=== PATIENT | male | born 1960 | race Caucasian/White ===

== ENCOUNTER 2016-11-30 09:25 | Emergency (ER) | payer BC, OTHER ==
[2016-11-30 10:29] VITALS: BP 190/106
--- NOTE | 2016-11-30 12:43 | UC ---
Throat Pain/Nasal Aníbal HPI - HPI Summary HPI Summary: 56 male presents complaining of sore throat especially in the morning, cough and nasal congestion that started 5 days ago. Patient states he has not tried taking anything for the symptoms besides Nyquil with minimal relief. He is around sick contacts often. He wanted to make sure it wasn't strep or something that needed an antibiotic. States the cough is productive at points with a mucus -like sputum coming up. He does have coughing fits. Denies fever/chills, difficulty breathing, chest pain and nausea/vomiting. - History of Current Complaint Chief Complaint: UCRespiratory Stated Complaint: THROAT PAIN Time Seen by Provider: 11/30/16 11:42 Hx Obtained From: Patient Onset/Duration: Sudden Onset, Lasting Days Severity: Mild Pain Intensity: 7 Pain Scale Used: 0-10 Numeric Cough: Sputum Appears - mucus like Associated Signs & Symptoms: Positive: Dysphagia, Nasal Discharge. Negative: Wheezing, Hoarseness, Sinus Discomfort, Fever - Allergies/Home Medications Allergies/Adverse Reactions: Allergies Allergy/AdvReac Type Severity Reaction Status Date / Time No Known Allergies Allergy Verified 05/14/13 07:34 PMH/Surg Hx/FS Hx/Imm Hx Previously Healthy: Yes Cardiovascular History Of: Reports: Hypertension - WELL CONTROLLED ON MEDICATION Denies: Pacemaker/ICD - Surgical History Surgical History: Yes Surgery Procedure, Year, and Place: [id number] LASER- NO IMPLANTS- 1995. ORAL SURGERIES - Family History Known Family History: Positive: Unknown - Social History Alcohol Use: None Substance Use Type: None Smoking Status (MU): Former Smoker Type: Cigars Review of Systems Constitutional: Negative Skin: Negative Eyes: Negative ENT: Sore Throat, Nasal Discharge Respiratory: Cough Cardiovascular: Negative Gastrointestinal: Negative Genitourinary: Negative Motor: Negative Neurovascular: Negative Musculoskeletal: Negative Neurological: Headache Psychological: Negative All Other Systems Reviewed And Are Negative: Yes Physical Exam Triage Information Reviewed: Yes Appearance: Well-Appearing - coughing on exam, No Pain Distress, Well-Nourished Vital Signs: Initial Vital Signs Temp 97.9 F 11/30/16 10:23 Pulse 92 11/30/16 10:23 Resp 16 11/30/16 10:23 BP 190/106 11/30/16 10:23 Pulse Ox 99 11/30/16 10:23 Blood pressure elevated. patient was informed and it will be monitored and taken again. patient was frustrated for the long wait. Vital Signs Reviewed: Yes Eyes: Positive: Conjunctiva Clear ENT: Positive: Hearing grossly normal, Pharynx normal, Nasal congestion, Nasal drainage, TMs normal. Negative: Tonsillar swelling, Tonsillar exudate Dental Exam: Normal Neck: Positive: Supple, Nontender, No Lymphadenopathy Respiratory: Positive: Chest non-tender, Lungs clear, Normal breath sounds, No respiratory distress Cardiovascular: Positive: RRR, No Murmur, Pulses Normal, Brisk Capillary Refill , Tachycardia Abdominal Exam: Normal Bowel Sounds: Positive: Present Musculoskeletal Exam: Normal Neurological Exam: Normal Psychological Exam: Normal Skin Exam: Normal Throat Pain/Nasal Course/Dx - Course Course Of Treatment: Patient was educated on proper OTC treatment. - Differential Dx/Diagnosis Differential Diagnosis/HQI/PQRI: Pharyngitis, Sinusitis, URI Provider Diagnoses: URI, Rhinosinusitis Discharge - Discharge Plan Condition: Stable Disposition: HOME Prescriptions: Fluticasone NASAL SPRAY 50MCG* [Flonase NASAL SPRAY 50MCG*] 2 spray BOTH NARES DAILY #1 btl Patient Education Materials: Upper Respiratory Infection (ED), Rhinosinusitis ( ED) Forms: *Work Release Referrals: Aaron Carty MD [Primary Care Provider] - Additional Instructions: Take OTC medication such as Chloraseptic spray for sore throat, Zicam, Mucinex and Cough suppressants such as Robitussin or Delsym (before bedtime) to help with symptoms. Use prescribed Nasonex as prescribed for the next 5-7 days as needed. Hot showers, humidified air and rest will help with quick recovery. Drink plenty of fluids. IF symptoms worsen or do not improve in the next 7-14 days please seek medical attention or return to . Follow-up with primary care provider is recommended.
== END 2016-11-30 13:02 | disposition home or self-care (01) ==
LOC: UCEAST 09:25
DX: J06.9 Acute upper respiratory infection, unspecified (principal); J32.9 Chronic sinusitis, unspecified; I10 Essential (primary) hypertension; Z87.891 Personal history of nicotine dependence
CPT/HCPCS: 87651; 99212; G0463